=== PATIENT | female | born 1985 | race American Indian/Alaskan Native ===

== ENCOUNTER 2016-08-16 21:46 | Emergency (ER) | payer SELFPAY ==
[2016-08-16] MEDS ORDERED: CATAPRES PO ONE (22:06)
[2016-08-16 23:31] LABS: Anion Gap 21 mmol/L; BUN/Creatinine Ratio 11.66; Blood Urea Nitrogen 7 mg/dL (7-17); Calcium 9.1 mg/dL (8.4-10.2); Carbon Dioxide 21 mmol/L (22-30); Glucose 94 mg/dL (65-100); Hemoglobin 11.3 gm/dl (10.1-14.3); Mean Corpuscular HGB Conc 32 % (30-34); Mean Corpuscular Volume 80 fl (79-97); Platelet Count 435 K/mm3 (140-440); Potassium 3.9 mmol/L (3.6-5.0); Red Cell Distribution Width 15.9 % (13.2-15.2); Sodium 138 mmol/L (137-145); White Blood Count 10.1 K/mm3 (4.5-11.0)
[2016-08-16 23:42] LABS: Mean Corpuscular Hemoglobin 26 pg (28-32)
[2016-08-17 00:59] VITALS: BP 163/115
[2016-08-17 01:10] LABS: Blastocytes % (Manual) 0 %
[2016-08-17 01:11] LABS: Anisocytosis 1+; Diff Status Complete; Hypochromasia 1+
== END 2016-08-17 04:15 | disposition left against medical advice (07) ==
LOC: ED 21:46
DX: R51 Headache (principal); M79.622 Pain in left upper arm; Z53.21 Procedure and treatment not carried out due to patient leaving prior to being seen by health care provider
CPT/HCPCS: 36415; 80048; 84484; 85007; 85025; 93005; 93010

== ENCOUNTER 2016-08-18 12:13 | Emergency (ER) | payer SELFPAY ==
[2016-08-18] MEDS ORDERED: TENORMIN PO ONE (15:35)
[2016-08-18] MEDS ORDERED: HCTZ PO ONE (15:35)
--- NOTE | 2016-08-18 15:36 | Emergency Department Report ---
- General Chief complaint: Skin/Abscess/Foreign Body Stated complaint: LT ARM PAIN REDNESS W/SWELLING Time Seen by Provider: 08/18/16 15:35 Source: patient Mode of arrival: Ambulatory Limitations: No Limitations - History of Present Illness Initial comments: 30-year-old female past medical history hypertension obesity presents with complaint of itchy red patch of skin to left upper humerus region 5 days. Patient denies any fever or chills denies any purulent drainage. Patient states she has not taken her blood pressure medication in over 2 months. Nontoxic-appearing awake alert and oriented 3. Patient denies any trauma or lacerations to her arm, states she may have been bitten by an insect. Patient denies any chest pain palpitations no shortness of breath reported. Patient states that she is very anxious because of the pain local to the skin. MD complaint: abscess/boil Onset/Timin -: days(s) Location: LUE Severity: moderate Severity scale (0 -10): 4 Quality: sharp Consistency: intermittent Worsens with: none Context: none - Related Data Home Medications Medication Instructions Recorded Confirmed Last Taken Atenolol [Tenormin] 50 mg PO DAILY 12/24/12 09/12/15 1 Day Ago 50 Hydrochlorothiazide [Hctz] 12.5 mg PO QDAY 09/12/15 09/12/15 1 Day Ago 12.5 Previous Rx's Medication Instructions Recorded Last Taken Type HYDROcodone/APAP 5-325 [[place] 1 each PO Q6HR PRN #8 tablet 03/10/16 Unknown Rx 5/325] Atenolol [Tenormin] 50 mg PO DAILY #30 tab 08/18/16 Unknown Rx Cephalexin [Keflex] 500 mg PO Q12HR #14 cap 08/18/16 Unknown Rx Hydrochlorothiazide [Hctz] 12.5 mg PO QDAY #30 capsule 08/18/16 Unknown Rx Sulfamethoxazole/Trimethoprim 1 each PO BID #14 tablet 08/18/16 Unknown Rx [Bactrim DS TAB] Allergies Allergy/AdvReac Type Severity Reaction Status Date / Time No Known Allergies Allergy Verified 01/17/14 23:27 Abscess Boil HPI - HPI Chief Complaint: Skin/Abscess/Foreign Body Stated Complaint: LT ARM PAIN REDNESS W/SWELLING Time Seen by Provider: 08/18/16 15:35 Home Medications: Home Medications Medication Instructions Recorded Confirmed Last Taken Atenolol [Tenormin] 50 mg PO DAILY 12/24/12 09/12/15 1 Day Ago 50 Hydrochlorothiazide [Hctz] 12.5 mg PO QDAY 09/12/15 09/12/15 1 Day Ago 12.5 Previous Rx's Medication Instructions Recorded Last Taken Type HYDROcodone/APAP 5-325 [[place] 1 each PO Q6HR PRN #8 tablet 03/10/16 Unknown Rx 5/325] Atenolol [Tenormin] 50 mg PO DAILY #30 tab 08/18/16 Unknown Rx Cephalexin [Keflex] 500 mg PO Q12HR #14 cap 08/18/16 Unknown Rx Hydrochlorothiazide [Hctz] 12.5 mg PO QDAY #30 capsule 08/18/16 Unknown Rx Sulfamethoxazole/Trimethoprim 1 each PO BID #14 tablet 08/18/16 Unknown Rx [Bactrim DS TAB] Allergies/Adverse Reactions: Allergies Allergy/AdvReac Type Severity Reaction Status Date / Time No Known Allergies Allergy Verified 01/17/14 23:27 ED Review of Systems ROS: Stated complaint: LT ARM PAIN REDNESS W/SWELLING Other details as noted in HPI Constitutional: denies: chills, fever Eyes: denies: eye pain, eye discharge, vision change ENT: denies: ear pain, throat pain Respiratory: denies: cough, shortness of breath, wheezing Cardiovascular: denies: chest pain, palpitations Endocrine: no symptoms reported Gastrointestinal: denies: abdominal pain, nausea, diarrhea Genitourinary: denies: urgency, dysuria, discharge Musculoskeletal: denies: back pain, joint swelling, arthralgia Skin: rash. denies: lesions Neurological: denies: headache, weakness, paresthesias Psychiatric: denies: anxiety, depression Hematological/Lymphatic: denies: easy bleeding, easy bruising ED Past Medical Hx - Past Medical History Previous Medical History?: Yes Hx Hypertension: Yes Hx Headaches / Migraines: Yes Additional medical history: headache - Surgical History Past Surgical History?: No - Social History Smoking Status: Never Smoker Substance Use Type: None - Medications Home Medications: Home Medications Medication Instructions Recorded Confirmed Last Taken Type Atenolol [Tenormin] 50 mg PO DAILY 12/24/12 09/12/15 1 Day Ago History 50 Hydrochlorothiazide [Hctz] 12.5 mg PO QDAY 09/12/15 09/12/15 1 Day Ago History 12.5 HYDROcodone/APAP 5-325 [[place] 1 each PO Q6HR PRN #8 tablet 03/10/16 Unknown Rx 5/325] Atenolol [Tenormin] 50 mg PO DAILY #30 tab 08/18/16 Unknown Rx Cephalexin [Keflex] 500 mg PO Q12HR #14 cap 08/18/16 Unknown Rx Hydrochlorothiazide [Hctz] 12.5 mg PO QDAY #30 capsule 08/18/16 Unknown Rx Sulfamethoxazole/Trimethoprim 1 each PO BID #14 tablet 08/18/16 Unknown Rx [Bactrim DS TAB] ED Physical Exam - General Limitations: No Limitations General appearance: alert, in no apparent distress - Head Head exam: Present: atraumatic, normocephalic - Eye Eye exam: Present: normal appearance, PERRL, EOMI - ENT ENT exam: Present: mucous membranes moist - Neck Neck exam: Present: normal inspection, full ROM - Respiratory Respiratory exam: Present: normal lung sounds bilaterally. Absent: respiratory distress - Cardiovascular Cardiovascular Exam: Present: regular rate, normal rhythm. Absent: systolic murmur, diastolic murmur, rubs, gallop - GI/Abdominal GI/Abdominal exam: Present: soft, normal bowel sounds - Extremities Exam Extremities exam: Present: normal inspection - Expanded Upper Extremity Exam Left Shoulder Exam: Present: normal inspection, full ROM Upper Arm exam: Present: tenderness, swelling (small abscess approximately 2 cm left lateral upper humerus region minor surrounding cellulitis) Elbow exam: Present: normal inspection, full ROM - Back Exam Back exam: Present: normal inspection - Neurological Exam Neurological exam: Present: alert, oriented X3 - Psychiatric Psychiatric exam: Present: normal affect, normal mood - Skin Skin exam: Present: warm, dry, intact, normal color. Absent: rash ED Course Vital Signs 08/18/16 08/18/16 08/18/16 13:22 15:46 16:33 Temperature 98.6 F Pulse Rate 124 H 123 H 92 H Respiratory 16 18 Rate Blood Pressure 177/122 173/95 Blood Pressure 164/117 [Left] O2 Sat by Pulse 100 Oximetry - I & D Left Upper Lateral Arm Site: left upper humerus region Blade Size: 11 I & D Procedure: betadine prep Progress: Small stab incision made horizontally less than 1 cm, tiny amount appearing drainage, minimal bleeding procedure tolerated well ED Medical Decision Making - Medical Decision Making A/P: Upper arm abscess, asymptomatic hypertension 1- abscess incised and drained, Bactrim and Keflex twice a day 7 days 2-I provided patient with prescriptions for her atenolol and hydrochlorothiazide. Patient admittedly states she has not taken her blood pressure medicines and almost 2 months. Patient denies any chest pain and blurry vision no nausea no vomiting no shortness of breath no headache no dizziness reported. Patient has asymptomatic hypertension. As per ACEP htn guidelines will provide patient with her outpatient medications and refer to primary care Critical care attestation.: If time is entered above; I have spent that time in minutes in the direct care of this critically ill patient, excluding procedure time. ED Disposition Clinical Impression: Abscess of upper arm Disposition: DISCHARGED TO HOME OR SELFCARE Is pt being admited?: No Does the pt Need Aspirin: No Condition: Stable Instructions: Abscess Incision and Drainage (ED), Abscess (ED) Prescriptions: Atenolol [Tenormin] 50 mg PO DAILY #30 tab Cephalexin [Keflex] 500 mg PO Q12HR #14 cap Hydrochlorothiazide [Hctz] 12.5 mg PO QDAY #30 capsule Sulfamethoxazole/Trimethoprim [Bactrim DS TAB] 1 each PO BID #14 tablet Referrals: MESERET العراقي MD [Staff Physician] - 3-5 Days [facility] [Outside] - 3-5 Days [facility] [Outside] - 3-5 Days Forms: Accompanied Note, Work/School Release Form(ED) Time of Disposition: 16:52
[2016-08-18 16:34] VITALS: BP 164/117
--- NOTE | 2016-08-20 07:53 | ED Elopement Review ---
ED Pt Elopement review - Call Back decision Pt Call Back Decision: Pt to F/U with PMD (hypertension multilab issue)
== END 2016-08-18 16:58 | disposition home or self-care (01) ==
LOC: ED 12:13
DX: L02.414 Cutaneous abscess of left upper limb (principal); I10 Essential (primary) hypertension; G43.909 Migraine, unspecified, not intractable, without status migrainosus
CPT/HCPCS: 99282

== ENCOUNTER 2016-09-17 20:42 | Emergency (ER) | payer SELFPAY ==
[2016-09-17 21:39] LABS: Hematocrit 34.7 % (30.3-42.9); Hemoglobin 11.5 gm/dl (10.1-14.3); Mean Corpuscular HGB Conc 33 % (30-34); Mean Corpuscular Volume 78 fl (79-97); Platelet Count 416 K/mm3 (140-440); Red Blood Count 4.45 M/mm3 (3.65-5.03); Red Cell Distribution Width 15.8 % (13.2-15.2); White Blood Count 11.6 K/mm3 (4.5-11.0)
[2016-09-17 21:48] LABS: Mean Corpuscular Hemoglobin 26 pg (28-32)
[2016-09-17 21:53] LABS: Anion Gap 21 mmol/L; BUN/Creatinine Ratio 11.66; Blood Urea Nitrogen 7 mg/dL (7-17); Calcium 9.5 mg/dL (8.4-10.2); Carbon Dioxide 21 mmol/L (22-30); Chloride 98.8 mmol/L (98-107); Glucose 111 mg/dL (65-100); Potassium 3.9 mmol/L (3.6-5.0); Sodium 137 mmol/L (137-145)
[2016-09-17 22:35] LABS: Anisocytosis 1+; Basophils % (Manual) 0 % (0.0-1.8); Blastocytes % (Manual) 0 %; Diff Status Complete; Platelet Estimate Consistent w Auto
[2016-09-18] MEDS ORDERED: REGLAN IV ONE (01:05)
[2016-09-18] MEDS ORDERED: BENADRYL IV ONE (01:05)
[2016-09-18 01:33] VITALS: BP 149/91
[2016-09-18 01:33] LABS: Bilirubin,Urine NEG (Negative); Blood,Urine NEG (Negative); Ketones,Urine NEG (Negative); Leukocyte Esterase,Urine LG (Negative); Mucus,Urine FEW /HPF; Nitrite,Urine NEG (Negative); Protein,Urine <15 mg/dL mg/dL (Negative); Urobilinogen,Urine < 2.0 mg/dL (<2.0)
--- NOTE | 2016-09-18 01:33 | Emergency Department Report ---
ED Headache HPI - General Chief Complaint: Headache Stated Complaint: SEVERE HEADACHE Time Seen by Provider: 09/18/16 00:30 Source: patient Exam Limitations: no limitations - History of Present Illness Initial Comments: This is a 31-year-old female well-nourished with nontoxic or ill in appearance that presents with intermittent headache for the past week. Patient agrees to having history of chronic migraine headaches. Patient states does not take anything [id number] or medications for migraine headaches. They state does have a primary care doctor for her hypertension that is controlled with atenolol and HCTZ. Patient stated did not take it yesterday or today due to busy day. He denies any fever, chills, chest pain, shortness of breath, numbness, tingling, blurry vision, nausea, vomiting, stiff neck. Patient describes headache as a gradual onset that is intermittent that is described as aching diffuse with a level of a not of a 10. Patient stated dark this subsides her headache. Patient agrees to light and noise causing her headaches to return and increased in intensity. Patient denies any recent trauma or head injury. Patient denies having the worst headache of her life. Patient denies thunderclap headache. Denies any allergies. Timing/Duration: 1 week (intermittent) Quality: moderate Head Injury Location: other (diffuse) Recent Head Trauma: no recent headache/trauma, frequent headaches, chronic headaches Associated Symptoms: denies symptoms. denies: confusion, fatigue, facial pain, fever/chills, flushing, loss of consciousness, nausea/vomiting, nasal congestion , nasal drainage, numbness in legs/feet, rash, seizures, sinus infection, stiff neck, vision changes, weakness Allergies/Adverse Reactions: Allergies No Known Allergies Allergy (Verified 01/17/14 23:27) Home Medications: Ambulatory Orders Atenolol [Tenormin] 50 mg PO DAILY 12/24/12 Hydrochlorothiazide [Hctz] 12.5 mg PO QDAY 09/12/15 HYDROcodone/APAP 5-325 [[place] 5/325] 1 each PO Q6HR PRN #8 tablet 03/10/16 Atenolol [Tenormin] 50 mg PO DAILY #30 tab 08/18/16 Cephalexin [Keflex] 500 mg PO Q12HR #14 cap 08/18/16 Hydrochlorothiazide [Hctz] 12.5 mg PO QDAY #30 capsule 08/18/16 Sulfamethoxazole/Trimethoprim [Bactrim DS TAB] 1 each PO BID #14 tablet Ibuprofen [Motrin 600 MG tab] 600 mg PO Q8H PRN #15 tablet 09/18/16 ED Review of Systems ROS: Stated complaint: SEVERE HEADACHE Other details as noted in HPI Constitutional: denies: chills, fever Eyes: denies: eye pain, eye discharge, vision change ENT: denies: ear pain, throat pain Respiratory: denies: cough, shortness of breath, wheezing Cardiovascular: denies: chest pain, palpitations Endocrine: no symptoms reported Gastrointestinal: denies: abdominal pain, nausea, diarrhea Genitourinary: denies: urgency, dysuria, discharge Musculoskeletal: denies: back pain, joint swelling, arthralgia Skin: denies: rash, lesions Neurological: denies: headache, weakness, paresthesias Psychiatric: denies: anxiety, depression Hematological/Lymphatic: denies: easy bleeding, easy bruising ED Past Medical Hx - Past Medical History Hx Hypertension: Yes Hx Headaches / Migraines: Yes Additional medical history: headache, rapid heart rate (controlled with MEDS) - Social History Smoking Status: Never Smoker Substance Use Type: None - Medications Home Medications: Home Medications Medication Instructions Recorded Confirmed Last Taken Type Atenolol [Tenormin] 50 mg PO DAILY 12/24/12 09/12/15 1 Day Ago History 50 Hydrochlorothiazide [Hctz] 12.5 mg PO QDAY 09/12/15 09/12/15 1 Day Ago History 12.5 HYDROcodone/APAP 5-325 [[place] 1 each PO Q6HR PRN #8 tablet 03/10/16 Unknown Rx 5/325] Atenolol [Tenormin] 50 mg PO DAILY #30 tab 08/18/16 Unknown Rx Cephalexin [Keflex] 500 mg PO Q12HR #14 cap 08/18/16 Unknown Rx Hydrochlorothiazide [Hctz] 12.5 mg PO QDAY #30 capsule 08/18/16 Unknown Rx Sulfamethoxazole/Trimethoprim 1 each PO BID #14 tablet 08/18/16 Unknown Rx [Bactrim DS TAB] Ibuprofen [Motrin 600 MG tab] 600 mg PO Q8H PRN #15 tablet 09/18/16 Unknown Rx ED Physical Exam - General Limitations: No Limitations General appearance: alert, in no apparent distress - Head Head exam: Present: atraumatic, normocephalic - Eye Eye exam: Present: normal appearance, PERRL, EOMI. Absent: scleral icterus, conjunctival injection, nystagmus, periorbital swelling, periorbital tenderness Pupils: Present: normal accommodation - ENT ENT exam: Present: normal exam, normal orophraynx, mucous membranes moist, TM's normal bilaterally, normal external ear exam - Neck Neck exam: Present: normal inspection, full ROM. Absent: tenderness, meningismus, lymphadenopathy, thyromegaly - Respiratory Respiratory exam: Present: normal lung sounds bilaterally. Absent: respiratory distress, wheezes, rales, rhonchi, stridor, chest wall tenderness, accessory muscle use, decreased breath sounds, prolonged expiratory - Cardiovascular Cardiovascular Exam: Present: regular rate, normal rhythm, normal heart sounds. Absent: bradycardia, tachycardia, irregular rhythm, systolic murmur, diastolic murmur, rubs, gallop - GI/Abdominal GI/Abdominal exam: Present: soft, normal bowel sounds. Absent: distended, tenderness, guarding, rebound, rigid, diminished bowel sounds - Rectal Rectal exam: Present: deferred - Extremities Exam Extremities exam: Present: normal inspection, full ROM, normal capillary refill. Absent: tenderness, pedal edema, joint swelling, calf tenderness - Back Exam Back exam: Present: normal inspection, full ROM. Absent: tenderness, CVA tenderness (R), CVA tenderness (L), muscle spasm, paraspinal tenderness, vertebral tenderness, rash noted - Neurological Exam Neurological exam: Present: alert, oriented X3, CN II-XII intact, normal gait - Expanded Neurological Exam Expanded Patient oriented to: Present: person, place, time Speech: Present: fluid speech (normal speech) Cranial nerves: EOM's Intact: Normal, Gag Reflex: Normal, Tongue Deviation: Normal, Nystagmus: Normal, Facial Sensation: Normal, Facial Palsy with Forehead Movement: Normal, Facial Palsy without Forehead Movement: Normal Cerebellar function: Finger to Nose: Normal, Heel to Arthur: Normal, Romberg: Normal Upper motor neuron: Gagandeep Neglect: Normal, Pronator Drift: Normal, Babinski Sign : Normal, Sensory Extinction: Normal Sensory exam: Upper Extremity Light Touch: Normal, Upper Extremity Pin Prick: Normal, Upper Extremity Temperature: Normal, UE 2 Point Discrimination: Normal, Lower Extremity Light Touch: Normal, Lower Extremity Pin Prick: Normal, Lower Extremity Temperature: Normal, LE 2 Point Discrimination: Normal Motor strength exam: RUE: 5, LUE: 5, RLE: 5, LLE: 5 DTR: bicep (R): 2+, bicep (L): 2+, tricep (R): 2+, tricep (L): 2+, knee (R): 2+ , knee (L): 2+, ankle (R): 2+, ankle (L): 2+ Best Eye Response ([place]): (4) open spontaneously Best Motor Response ([place]): (6) obeys commands Best Verbal Response ([place]): (5) oriented [place]át[place] Total: 15 - Psychiatric Psychiatric exam: Present: normal affect, normal mood - Skin Skin exam: Present: warm, dry, intact, normal color. Absent: rash ED Course Vital Signs 09/17/16 09/17/16 09/18/16 20:51 20:59 01:32 Temperature 98.9 F 98.9 F 98.7 F Pulse Rate 112 H 87 Respiratory 20 Rate Blood Pressure 149/103 Blood Pressure 149/103 149/91 [Right] O2 Sat by Pulse 100 100 Oximetry - Reevaluation(s) Reevaluation #1: 09/18/16 01:45 Patient stated feels much better with headache subsided 0/10. Patient is resting well with no signs of distress noted. Reevaluation #2: 09/18/16 01:39 Mother is currently at bedside and stated she will be with her till d/c and have the patient go home with her. Patient is smiling, laughing, and talking with no signs of distress ED Medical Decision Making - Lab Data Result diagrams: 09/17/16 21:18 09/17/16 21:18 - Medical Decision Making Ed course: This is a 31-year-old female that presents with migraine headaches 1- after my physical exam, patient received REglan and Benadryl IV. Patient stated her headache has subsided to 0/10. 2- I instructed the patient that she is not allowed to operate heavy machinery during discharge due to sedation/drowsiness of Benadryl. Mother is currently present and stated she will take a cab with the patient home. 3- patient received ibuprofen 600 mg by mouth at the time of discharge. 4- at time time of discharge, the patient does not seem toxic or ill in appearance. No acute signs of distress noted. Patient agrees to discharge treatment plan of care. No further questions noted by the patient. Critical care attestation.: If time is entered above; I have spent that time in minutes in the direct care of this critically ill patient, excluding procedure time. ED Disposition Clinical Impression: Migraine headache Qualifiers: Migraine type: unspecified Status migrainosus presence: without status migrainosus Intractability: not intractable Qualified Code(s): G43.909 - Migraine, unspecified, not intractable, without status migrainosus Disposition: TO HOME OR SELFCARE Is pt being admited?: No Does the pt Need Aspirin: No Condition: Stable Instructions: Ibuprofen (By mouth), Acute Headache (ED), Migraine Headache (ED) Additional Instructions: Take ibuprofen as needed for headache as prescribed. Follow-up with her primary care doctor in 3-5 days or if symptoms worsen and are bearable return to emergency room as soon as possible. Prescriptions: Ibuprofen [Motrin 600 MG tab] 600 mg PO Q8H PRN #15 tablet PRN Reason: Pain Referrals: PRIMARY CAREMD [Primary Care Provider] - 3-5 Days [facility] [Outside] - 3-5 Days [facility] [place] [Outside] - 3-5 Days JOVANNY RAMOS JR, MD [Staff Physician] - 3-5 Days Forms: Work/School Release Form(ED)
== END 2016-09-18 02:15 | disposition home or self-care (01) ==
LOC: ED 20:42
DX: G43.909 Migraine, unspecified, not intractable, without status migrainosus (principal); I10 Essential (primary) hypertension
CPT/HCPCS: 36415; 80048; 81001; 81025; 85007; 85025; 96374; 96375; 99283; J1200; J2765

== ENCOUNTER 2017-07-20 02:32 | Emergency (ER) | payer SELFPAY ==
[2017-07-20 04:32] LABS: Bilirubin,Urine NEG (Negative); Blood,Urine NEG (Negative); Color,Urine Red (Yellow); Protein,Urine <15 mg/dL mg/dL (Negative); Urobilinogen,Urine < 2.0 mg/dL (<2.0)
[2017-07-20 04:48] LABS: Alanine Aminotransferase 7 units/L (7-56); Albumin 4.3 g/dL (3.9-5); BUN/Creatinine Ratio 13; Blood Urea Nitrogen 8 mg/dL (7-17); Calcium 8.8 mg/dL (8.4-10.2); Hemolysis Index 1
[2017-07-20 04:52] LABS: HCG Qualitative,Urine Negative (Negative)
[2017-07-20 04:55] LABS: Amphetamine Screen,Urine PRESUMPTIVE NEGATIVE; Benzodiazepines Screen,Urine PRESUMPTIVE NEGATIVE; Cocaine Screen,Urine PRESUMPTIVE NEGATIVE; Methadone Screen,Urine PRESUMPTIVE NEGATIVE; Opiate Screen,Urine PRESUMPTIVE NEGATIVE
[2017-07-20 04:57] LABS: Hematocrit 34.3 % (30.3-42.9); Hemoglobin 11.4 gm/dl (10.1-14.3); Mean Corpuscular HGB Conc 33 % (30-34); Mean Corpuscular Hemoglobin 26 pg (28-32); Mean Corpuscular Volume 78 fl (79-97); Platelet Count 440 K/mm3 (140-440)
[2017-07-20 04:58] LABS: Basophils % (Auto) 0.5 % (0.0-1.8); Eosinophils % (Auto) 0.3 % (0.0-4.3); Lymphocytes # (Auto) 2.4 K/mm3 (1.2-5.4); Lymphocytes % (Auto) 27.5 % (13.4-35.0); Monocytes # (Auto) 0.5 K/mm3 (0.0-0.8); Monocytes % (Auto) 5.9 % (0.0-7.3)
[2017-07-20 05:16] LABS: Cannabinoid Screen,Urine PRESUMPTIVE POSITIVE
--- NOTE | 2017-07-20 09:10 | Emergency Department Report ---
ED General Adult HPI - General Chief complaint: Arrhythmia/Palpitations Stated complaint: SOB Time Seen by Provider: 07/20/17 08:53 Source: patient Mode of arrival: Ambulatory Limitations: No Limitations - History of Present Illness Initial comments: Patient is 31 years old female history of hypertension and panic attack. Patient stated that she had an episode of shortness of breath and generalized numbness and tingling sensation and feeling of [place]. Patient stated that is similar to her previous panic attack. Patient's symptoms completely resolved at the time of this exam. Patient also stated that she is out of her blood pressure medicine which she include amlodipine and hydrochlorothiazide but she stated that she is going to sheepskin pickler her prescription today from the pharmacy. She denied any headache, chest pain, shortness of breath, dizziness, nausea or vomiting. - Related Data Home Medications Medication Instructions Recorded Confirmed Last Taken Atenolol [Tenormin] 50 mg PO DAILY 12/24/12 09/12/15 1 Day Ago ~09/11/15 50 Hydrochlorothiazide [Hctz] 12.5 mg PO QDAY 09/12/15 09/12/15 1 Day Ago ~09/11/15 12.5 Previous Rx's Medication Instructions Recorded Last Taken Type HYDROcodone/APAP 5-325 [[place] 1 each PO Q6HR PRN #8 tablet 03/10/16 Unknown Rx 5/325] Atenolol [Tenormin] 50 mg PO DAILY #30 tab 08/18/16 Unknown Rx Cephalexin [Keflex] 500 mg PO Q12HR #14 cap 08/18/16 Unknown Rx Hydrochlorothiazide [Hctz] 12.5 mg PO QDAY #30 capsule 08/18/16 Unknown Rx Sulfamethoxazole/Trimethoprim 1 each PO BID #14 tablet 08/18/16 Unknown Rx [Bactrim DS TAB] Ibuprofen [Motrin 600 MG tab] 600 mg PO Q8H PRN #15 tablet 09/18/16 Unknown Rx Allergies Allergy/AdvReac Type Severity Reaction Status Date / Time No Known Allergies Allergy Verified 01/17/14 23:27 ED Review of Systems ROS: Stated complaint: SOB Other details as noted in HPI Comment: All other systems reviewed and negative Constitutional: denies: chills Respiratory: shortness of breath. denies: cough, orthopnea Cardiovascular: palpitations. denies: chest pain, dyspnea on exertion Gastrointestinal: denies: abdominal pain, nausea, vomiting, diarrhea Neurological: denies: headache, weakness, numbness, paresthesias, confusion ED Past Medical Hx - Past Medical History Hx Hypertension: Yes Hx Headaches / Migraines: Yes Hx Psychiatric Treatment: Yes (Anxiety, PANIC ATTACK) Additional medical history: headache, rapid heart rate (controlled with MEDS) - Surgical History Past Surgical History?: No - Social History Smoking Status: Never Smoker Substance Use Type: None - Medications Home Medications: Home Medications Medication Instructions Recorded Confirmed Last Taken Type Atenolol [Tenormin] 50 mg PO DAILY 12/24/12 09/12/15 1 Day Ago History ~09/11/15 50 Hydrochlorothiazide [Hctz] 12.5 mg PO QDAY 09/12/15 09/12/15 1 Day Ago History ~09/11/15 12.5 HYDROcodone/APAP 5-325 [[place] 1 each PO Q6HR PRN #8 tablet 03/10/16 Unknown Rx 5/325] Atenolol [Tenormin] 50 mg PO DAILY #30 tab 08/18/16 Unknown Rx Cephalexin [Keflex] 500 mg PO Q12HR #14 cap 08/18/16 Unknown Rx Hydrochlorothiazide [Hctz] 12.5 mg PO QDAY #30 capsule 08/18/16 Unknown Rx Sulfamethoxazole/Trimethoprim 1 each PO BID #14 tablet 08/18/16 Unknown Rx [Bactrim DS TAB] Ibuprofen [Motrin 600 MG tab] 600 mg PO Q8H PRN #15 tablet 09/18/16 Unknown Rx ED Physical Exam - General Limitations: No Limitations General appearance: alert, in no apparent distress - Head Head exam: Present: atraumatic, normocephalic, normal inspection - Eye Eye exam: Present: normal appearance, PERRL - ENT ENT exam: Present: normal exam, normal orophraynx, mucous membranes moist - Neck Neck exam: Present: normal inspection, full ROM. Absent: tenderness, meningismus, lymphadenopathy, thyromegaly - Respiratory Respiratory exam: Present: normal lung sounds bilaterally - Cardiovascular Cardiovascular Exam: Present: regular rate, normal rhythm, normal heart sounds - GI/Abdominal GI/Abdominal exam: Present: soft, normal bowel sounds. Absent: distended, tenderness, guarding, rebound, rigid, organomegaly, mass, bruit, pulsatile mass , hernia - Extremities Exam Extremities exam: Present: normal inspection, full ROM, normal capillary refill - Back Exam Back exam: Present: normal inspection, full ROM. Absent: tenderness, CVA tenderness (R), CVA tenderness (L) - Neurological Exam Neurological exam: Present: alert, oriented X3, CN II-XII intact, normal gait - Psychiatric Psychiatric exam: Present: normal affect, normal mood - Skin Skin exam: Present: warm, intact, normal color ED Course Vital Signs 07/20/17 03:15 Temperature 99.0 F Pulse Rate 138 H Respiratory 18 Rate Blood Pressure 166/101 O2 Sat by Pulse 100 Oximetry ED Medical Decision Making - Lab Data Result diagrams: 07/20/17 04:08 07/20/17 04:08 - EKG Data -: EKG Interpreted by Me EKG shows normal: sinus rhythm Rate: tachycardia - EKG Data Interpretation: no acute changes - Medical Decision Making Patient stated that she is feeling much better, her symptoms completely resolved , blood pressure now is 140/84. I advised patient to follow-up with her primary care physician and to be compliant with her blood pressure medication. I also advised to return to the ER if her symptoms are not improving. Critical care attestation.: If time is entered above; I have spent that time in minutes in the direct care of this critically ill patient, excluding procedure time. ED Disposition Clinical Impression: Heart palpitations, Panic attack, Hypertension Disposition: -01 TO HOME OR SELFCARE Is pt being admited?: No Condition: Stable Instructions: Hypertension (ED), Anxiety (ED) Referrals: TAWANA PASTRANA MD [Primary Care Provider] - 3-5 Days
[2017-07-20 09:16] VITALS: BP 146/86
== END 2017-07-20 09:35 | disposition home or self-care (01) ==
LOC: ED 02:32
DX: I10 Essential (primary) hypertension (principal); R00.2 Palpitations; F41.9 Anxiety disorder, unspecified; F41.0 Panic disorder [episodic paroxysmal anxiety]; G43.909 Migraine, unspecified, not intractable, without status migrainosus; Z79.899 Other long term (current) drug therapy
CPT/HCPCS: 36415; 80053; 80307; 81001; 81025; 85025; 93005; 93010; 99283

== ENCOUNTER 2017-08-13 20:47 | Emergency (ER) | payer SELFPAY ==
[2017-08-13 21:27] VITALS: BP 156/102
[2017-08-14 05:04] LABS: Hemoglobin 11.6 gm/dl (10.1-14.3); Mean Corpuscular HGB Conc 34 % (30-34); Mean Corpuscular Hemoglobin 27 pg (28-32); Mean Corpuscular Volume 78 fl (79-97); Platelet Count 502 K/mm3 (140-440); Red Blood Count 4.36 M/mm3 (3.65-5.03); Red Cell Distribution Width 15.8 % (13.2-15.2)
[2017-08-14 05:13] LABS: BUN/Creatinine Ratio 13; Blood Urea Nitrogen 8 mg/dL (7-17); Calcium 9.6 mg/dL (8.4-10.2); Hemolysis Index 16
[2017-08-14 05:40] LABS: Anisocytosis 1+; Basophils % (Manual) 0 % (0.0-1.8); Ovalocytes 1+; Platelet Estimate Appears Increased; Total Cells Counted 100
== END 2017-08-14 09:10 | disposition left against medical advice (07) ==
LOC: ED 20:47
DX: R07.9 Chest pain, unspecified (principal); Z53.21 Procedure and treatment not carried out due to patient leaving prior to being seen by health care provider
CPT/HCPCS: 36415; 80048; 84484; 85007; 85025; 93005; 93010